=== PATIENT | female | born 1985 | race Hispanic/Latino ===

== ENCOUNTER 2025-09-06 08:55 | Emergency (ER) | payer BC ==
[~2025-09-06] VITALS: Ht 160 cm; Wt 89.8 kg
[2025-09-06 09:04] VITALS: PULSE 76
[2025-09-06] MEDS ORDERED: ONDANSETRON HCL INJ 2MG/ML 2ML 2 MG/ML VIAL IV PRN (09:15)
[2025-09-06 09:25] LABS: BASOPHILS % 0.6 % (0.0-1.0); EOSINOPHILS % 1.2 % (0.0-6.0); LYMPHOCYTES % 21.9 % (18.0-39.1); MONOCYTES % 5.9 % (4.4-11.3); NEUTROPHILS % 69.9 % (38.7-80.0); RED CELL DISTRIBUTION WIDTH 12.4 % (11.7-14.4)
[2025-09-06 09:47] LABS: EST GLOMERULAR FILTRATION RATE 115.0 ML/MIN (>=60)
[2025-09-06] MEDS: SODIUM CHLORIDE 0.9% 1000ML 1,000 ML IV STA (10:06)
[2025-09-06 11:29] LABS: LEUKOCYTE ESTERASE ,URINE NEGATIVE (NEGATIVE); PROTEIN,URINE DIPSTICK NEGATIVE (NEGATIVE); URINE UROBILINOGEN 0.2 mg/dL (0.2 - 1)
[2025-09-06 11:30] LABS: EPITHELIAL CELLS,URINE MODERATE /LPF
[2025-09-06 11:45] VITALS: RESP 16; TEMP 97.6
[2025-09-06] MEDS ORDERED: ONDANSETRON ODT4 MG PO (12:11)
[2025-09-06 12:42] VITALS: BP 124/72; PULSE 66; RESP 17; TEMP 97.3; O2SAT 99
== END 2025-09-06 12:52 | disposition home or self-care (01) ==
LOC: ER 09:02
DX: R10.11 Right upper quadrant pain (principal); K80.20 Calculus of gallbladder without cholecystitis without obstruction; R11.0 Nausea; K76.0 Fatty (change of) liver, not elsewhere classified
CPT/HCPCS: 36415; 76705; 80053; 81001; 83690; 84702; 85025; 99284; J7030